=== PATIENT | female | born 1975 | race American Indian/Alaskan Native ===

== ENCOUNTER 2018-09-30 02:02 | Emergency (ER) | payer SELFPAY ==
[2018-09-30 02:03] VITALS: BMI 47.0
[2018-09-30 03:02] VITALS: PULSE 95; RESP 16; O2SAT 99
[2018-09-30] MEDS ORDERED: Naproxen 550 mg Tab PO STA (03:35)
--- NOTE | 2018-09-30 03:44 | C.PDOC ---
History Of Present Illness 42 year old female presents to the ER with a complaint of intermittent back and thigh pain for the past 2-3 months. Patient arrived via EMS from homeless [facility]term. Denies weakness, numbness, or recent trauma. Time Seen by Provider: 09/30/18 03:06 Chief Complaint (Nursing): Lower Extremity Problem/Injury History Per: Patient History/Exam Limitations: no limitations Onset/Duration Of Symptoms: Days, Intermittent Episodes Current Symptoms Are (Timing): Still Present Recent travel outside of the [place]: No Past Medical History Reviewed: Historical Data, Nursing Documentation, Vital Signs Vital Signs: Last Vital Signs Temp 97.8 F 09/30/18 02:58 Pulse 95 H 09/30/18 02:58 Resp 16 09/30/18 02:58 BP Pulse Ox 99 09/30/18 02:58 - Medical History PMH: Schizophrenia Surgical History: Cholecystectomy Family History: States: No Known Family Hx - Social History Hx Alcohol Use: Yes Hx Substance Use: Yes Review Of Systems Musculoskeletal: Positive for: Back Pain, Leg Pain Neurological: Negative for: Weakness, Numbness Physical Exam - Physical Exam Appears: Non-toxic, Other (morbidly obese) Skin: Normal Color, Warm, Dry Head: Atraumatic, Normacephalic Eye(s): bilateral: Normal Inspection Back: No Vertebral Tenderness, No Paraspinal Tenderness Extremity: Normal ROM (x4), No Tenderness, Deformity (leg exam - pt refuses to disrobe), Other Pulses: Left Dorsalis Pedis: Normal, Right Dorsalis Pedis: Normal Neurological/Psych: Oriented x3, Normal Speech, Normal Motor, Normal Sensation Gait: Steady ED Course And Treatment O2 Sat by Pulse Oximetry: 99 (Room air) Pulse Ox Interpretation: Normal Progress Note: Pt is not cooperative covered from head to toes with a blanket, refuses full LE exam. Naproxen administered. Patient is resting comfortably in the ER in no acute distress, ambulatory with steady gait, vitals are stable, will discharge with instructions to follow up at the clinic. Reassessment Condition: Improved Disposition Counseled Patient/Family Regarding: Diagnosis, Need For Followup, Rx Given - Disposition Disposition: HOME/ ROUTINE Disposition Time: 04:52 Condition: STABLE Instructions: Chronic Pain (DC) Forms: [employer] ([place]) - Clinical Impression Clinical Impression: Chronic back pain - PA / COLLET [employer]KER / Resident Statement MD/DO has reviewed & agrees with the documentation as recorded. - Scribe Statement The provider has reviewed the documentation as recorded by the Scribe Edison Rai All medical record entries made by the Normaibgerald were at my direction and personally dictated by me. I have reviewed the chart and agree that the record accurately reflects my personal performance of the history, physical exam, medical decision making, and the department course for this patient. I have also personally directed, reviewed, and agree with the discharge instructions and disposition.
[2018-09-30] MEDS ORDERED: Naproxen 550 mg Tab PO ONE (03:48)
[2018-09-30 05:21] VITALS: TEMP 98
== END 2018-09-30 05:20 | disposition home or self-care (01) ==
LOC: C.ER 02:02
DX: M54.9 Dorsalgia, unspecified (principal); G89.29 Other chronic pain